=== PATIENT | female | born 1955 | race Caucasian/White ===

== ENCOUNTER → 2016-10-04 | Outpatient (CLI) | payer OTHER ==
--- NOTE | 2016-10-04 17:15 | XR ---
EXAMINATION TYPE: XR finger RT DATE OF EXAM: 10/04/2016 COMPARISON: NONE HISTORY: Pain TECHNIQUE: 3 views FINDINGS: I see no fracture nor dislocation. Joint spaces are fairly normal. IMPRESSION: Negative right ring finger exam.
== END ==
LOC: RAD 16:48
PROVIDERS: ATTEND Family Medicine
DX: M79.644 Pain in right finger(s) (principal)

== ENCOUNTER → 2020-03-27 | Outpatient (CLI) | payer MEDICARE, OTHER | END | disposition home or self-care (01) | LOC: LABWHC1 15:28 | PROVIDERS: ATTEND Family Medicine | DX: Z20.822 Contact with and (suspected) exposure to COVID-19 (principal) | CPT/HCPCS: U0003; C9803 ==

== ENCOUNTER 2020-04-19 18:25 | Observation (INO) | payer OTHER, MEDICARE ==
[2020-04-19] MEDS ORDERED: DIPH,PERTUS(ACELL)TETVAC-LF 0.5 ML VIAL IM ONE (18:47)
--- NOTE | 2020-04-19 19:18 | ED ---
Animal Bite HPI - General Source: patient, RN notes reviewed Mode of arrival: wheelchair Limitations: no limitations <Don Quiros - Last Filed: 04/19/20 20:08> <Ana Cristina Castro P - Last Filed: 04/20/20 16:02> - General Chief Complaint: Animal Bite Stated Complaint: Right foot injury Time Seen by Provider: 04/19/20 18:47 - History of Present Illness Initial Comments: Patient is a 64-year-old female that presents to the emergency department status post accidental right pinky toe amputation from dog bite. She notes that she was in the appendix on a few minutes dog overzealous and bit her foot through her shoe. Patient noted that she didn't even know her toes off until she took her shoe off. She is in no apparent distress or pain while sitting in bed during the exam and interview. Did bring her toe on an icepack was artery several hours old by the time she got the emergency department. She is a smoker but nondiabetic. She does have full sensation in her feet. Patient is very anxious about the potential pain of closing and washing. She denied any loss of consciousness chest pendulous breath headache nausea found diarrhea constipation fever fatigue chills. (Don Quiros) - Related Data Allergies Allergy/AdvReac Type Severity Reaction Status Date / Time No Known Allergies Allergy Verified 04/19/20 20:40 Review of Systems ROS Other: All systems not noted in ROS Statement are negative. <Don Quiros - Last Filed: 04/19/20 20:08> ROS Other: All systems not noted in ROS Statement are negative. <Ana Cristina Castro P - Last Filed: 04/20/20 16:02> ROS Statement: Those systems with pertinent positive or pertinent negative responses have been documented in the HPI. Past Medical History Past Medical History: GERD/Reflux, Hyperlipidemia History of Any Multi-Drug Resistant Organisms: None Reported Past Surgical History: Section, Hysterectomy, Tonsillectomy Past Psychological History: No Psychological Hx Reported Smoking Status: Current every day smoker Past Alcohol Use History: None Reported Past Drug Use History: None Reported <Don Quiros - Last Filed: 04/19/20 20:08> General Exam Limitations: no limitations General appearance: alert, in no apparent distress Head exam: Present: atraumatic, normocephalic, normal inspection Eye exam: Present: normal appearance, PERRL, EOMI. Absent: scleral icterus, conjunctival injection, periorbital swelling ENT exam: Present: normal exam, mucous membranes moist Neck exam: Present: normal inspection. Absent: tenderness, meningismus, lymphadenopathy Respiratory exam: Present: normal lung sounds bilaterally. Absent: respiratory distress, wheezes, rales, rhonchi, stridor Cardiovascular Exam: Present: regular rate, normal rhythm, normal heart sounds. Absent: systolic murmur, diastolic murmur, rubs, gallop, clicks GI/Abdominal exam: Present: soft, normal bowel sounds. Absent: distended, tenderness, guarding, rebound, rigid Extremities exam: Present: full ROM, normal capillary refill, other (Foot was wrapped in napkins and pain or state to stop the bleeding and control the mass prior to coming into the emergency department). Absent: normal inspection (Patient has open wound where right pinky toe used to be, right pinky toe was is about a whiplash back.), tenderness, pedal edema, joint swelling, calf tenderness Neurological exam: Present: alert, oriented X3, CN II-XII intact Psychiatric exam: Present: normal affect, normal mood Skin exam: Present: warm, dry, intact, normal color. Absent: rash <Don Quiros - Last Filed: 04/19/20 20:08> Course Vital Signs 04/19/20 04/19/20 18:27 20:47 Temperature 98.0 F 97.5 F L Pulse Rate 117 H Pulse Rate [ 99 Pulse Oximetery ] Respiratory 18 18 Rate Blood Pressure 152/84 Blood Pressure 129/78 [Left Arm] O2 Sat by Pulse 99 94 L Oximetry Medical Decision Making - Radiology Data Radiology results: report reviewed, image reviewed <Don Quiros - Last Filed: 04/19/20 20:08> <Ana Cristina Castro - Last Filed: 04/20/20 16:02> - Medical Decision Making 64-year-old female status post right pinky toe amputation via dog bite. 2 g of Ancef, tetanus vaccine ordered. Case discussed with Dr. Castro, consult good Dr. Navas it was decided just to wash out the freshly amputated toe with a clean bandage on it and admitted observation for debridement in the morning. Toes washed out extensively with normal saline and then covered in a clean dry dressing with 4 x 4 gauze and Kerlix wrap. (Don Quiros) I personally saw and evaluated the patient upon arrival to the emergency department. Patient does have a traumatic amputation of the right P Henry however does not meet criteria for activation of trauma. I agree with workup and management including antibiotics tetanus vaccine update, x-rays and admission to orthopedics for washout. (Ana Cristina Castro) - Radiology Data Toe x-ray: Amputation deformity. Possible foreign body (Don Quiros) Disposition Is patient prescribed a controlled substance at d/c from ED?: No Time of Disposition: 20:09 <Don Quiros - Last Filed: 04/19/20 20:08> <Ana Cristina Castro - Last Filed: 04/20/20 16:02> Clinical Impression: Amputation, toe, traumatic, Dog bite Disposition: ADMITTED IP TO THIS HOSP Condition: Stable
[2020-04-19] MEDS ORDERED: LIDOCAINE 1% INJ 10MG/ML (20 ML MDV) SQ ONE (19:30)
--- NOTE | 2020-04-19 19:38 | XR ---
EXAMINATION TYPE: XR toes RT DATE OF EXAM: 04/19/2020 COMPARISON: NONE HISTORY: Dogbite TECHNIQUE: 3 views FINDINGS: There is amputation deformity of the little toe at the level of the mid shaft of the proxim al phalanx. There are small densities projected over the soft tissues that could be soft tissue forei gn bodies. IMPRESSION: Amputation deformity. Possible foreign bodies.
[2020-04-19] MEDS ORDERED: traMADol 50 MG TAB PO PRN (20:05)
[2020-04-19] MEDS ORDERED: NALOXONE 0.4 MG/ML 1 ML VIAL IV PRN (20:05)
[2020-04-19] MEDS ORDERED: HYDROmorphone 0.5 MG/0.5 ML SYRINGE IVP PRN (20:05)
[2020-04-19] MEDS: SODIUM CHLORIDE 0.9% 1,000 ML IV SCH (21:12)
--- NOTE | 2020-04-19 21:24 | P.HPOR ---
History of Present Illness H&P Date: 04/19/20 Chief Complaint: Right small toe traumatic amputation Patient is a pleasant 64-year-old female who was bitten by a dog today on her right foot. She was at home and going to feed the dogs. She has an Stateless bulldog and she has had the dog for over 4 years but for some reason today when she was going to feed him he became very aggressive with the biter and bit her on the foot. She was wearing tennis shoes and when she went to take her tennis shoe off she found that her toe was missing. She tried to save the toe and place it on ice and presented to the emergency room. She denies any other injury she denies any other trauma. She denies any other problems with her foot or toes in the past. She is a heavy smoker. She denies any diabetes. She denies any other injury or any other bites. She says that the dog has never been anybody before. Review of Systems As stated in HPI. He denies any other injury. Denies any prior problems his right foot. She is normally a community ambulate without any assistance. She is a heavy smoker. Denies diabetes. She says she has eczema and dryness at her bilateral feet and ankles. 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 Past Medical History Past Medical History: GERD/Reflux, Hyperlipidemia Additional Past Medical History / Comment(s): History of chronic low back pain History of Any Multi-Drug Resistant Organisms: None Reported Past Surgical History: Section, Hysterectomy, Tonsillectomy Past Psychological History: No Psychological Hx Reported Smoking Status: Current every day smoker Past Alcohol Use History: None Reported Past Drug Use History: None Reported Medications and Allergies Home Medications Medication Instructions Recorded Confirmed Type Atorvastatin Calcium [Lipitor] 10 mg PO HS 04/19/20 04/19/20 History Loratadine [Claritin] 10 mg PO DAILY 04/19/20 04/19/20 History Naproxen Sodium [Aleve] 220 mg PO Q12HR 04/19/20 04/19/20 History Omeprazole [PriLOSEC] 20 mg PO DAILY 04/19/20 04/19/20 History Allergies Allergy/AdvReac Type Severity Reaction Status Date / Time No Known Allergies Allergy Verified 04/19/20 20:40 Physical Examination Osteopathic Statement: *. No significant issues noted on an osteopathic structural exam other than those noted in the History and Physical/Consult. - Ankle & Foot right Ankle appearance: laceration (There is some chronic skin changes where she does some scratching at her ankles. Her compartments are soft. She has tenderness at the small toe but no severe pain. Rest her foot is nontender. Her other toes are warm. Her other extremity is in full active and passive range of motion.), other (At the right foot her small toe has traumatic amputation. There is some exposed bone at the base of the proximal phalanx of the small toe. There is laceration around the area and torn tissue. There is no significant bleeding. There is some skin changes with chronic scratching around her anterior) Results - Diagnostic results Ankle/Foot x-ray: report reviewed, image reviewed (X-rays of her right foot show a traumatic and dictation in the base of the proximal phalanx of the small toe on the right. There is obvious soft tissue loss.) Assessment and Plan Assessment: Traumatic amputation the right small toe due to a dog bite Chronic smoker with poor vascular status Exposed bone at the amputation site Plan: Traumatic amputation the right small toe due to a dog bite Chronic smoker with poor vascular status Exposed bone at the amputation site The patient had a acute traumatic amputation of right small toe due to her dog bite. She had copious irrigation of the area in the emergency room with dressing appropriately. She has had her tetanus and antibiotics in the emergency room. I think the patient requires revision of the traumatic amputation surgically in the operating room for formal excisional irrigation and debridement. She will likely need some further resection of the bone at least of the proximal phalanx and possibly of the distal aspect of the metatarsal in order to achieve some soft tissue closure. There is significant soft tissue loss circumferentially and it will be difficult for obtaining appropriate wound closure. Her smoking status also adds to the degree of difficulty for healing. I explained this to her at length. She understands that if it does not heal appropriately she may need further resection and further amputation of the area. She has the toe with her but given the appearance of the area and the very poor vascular bed I think that it would not be of any benefit to try to save the toe or to do any re- anastomosis or reattachment of the toe. I explained this at length to her and she understands. We will keep her for observation and have her nothing by mouth after midnight and plan for surgical intervention tomorrow. Answered her questions best her ability G understand I discussed the risk of occasions alternatives and benefits of the surgery with her I discussed the risk of bleeding risk and infection risk and need for further surgery risk of decreased loss of motion loss of function in her foot was all explained to her answered her questions and she elects to proceed with surgical intervention.
[2020-04-20] MEDS: PANTOPRAZOLE 40 MG TABLET PO SCH (10:04)
[2020-04-20] MEDS: LORATADINE 10 MG TAB PO SCH (10:04)
[2020-04-20] MEDS: SODIUM CHLORIDE 0.9% 1,000 ML IV SCH ×2 (10:07→21:01)
[2020-04-20] MEDS ORDERED: LACTATED RINGERS 1,000 ML IV ONE (16:00)
[2020-04-20] MEDS ORDERED: MIDAZOLAM 2 MG/2 ML VIAL ONE (16:00)
[2020-04-20] MEDS ORDERED: LIDOCAINE 1% INJ 10MG/ML (20 ML MDV) ONE (16:00)
[2020-04-20] MEDS ORDERED: PROPOFOL 10 MG/ML 20 ML VIAL IV ONE (16:00)
[2020-04-20] MEDS ORDERED: fentaNYL (PF) 50 MCG/ML 2 ML AMP ONE (16:00)
[2020-04-20] MEDS ORDERED: ceFAZolin 1,000 MG VIAL IVPB ONE (16:12)
[2020-04-20] MEDS ORDERED: HYDROcodone/APAP 5-325MG 1 EACH TAB PO PRN (16:40)
[2020-04-20] MEDS ORDERED: PROCHLORPERAZINE SUPPOSITORY 25 MG SUPP RECTAL PRN (16:40)
[2020-04-20] MEDS ORDERED: HYDROmorphone 0.5 MG/0.5 ML SYRINGE IVP ONE (16:40)
[2020-04-20] MEDS ORDERED: KETOROLAC 15 MG/ML 1 ML VIAL IVP ONE (16:41)
[2020-04-20] MEDS ORDERED: ONDANSETRON 4 MG/2 ML VIAL IVP ONE (16:41)
--- NOTE | 2020-04-20 17:00 | P.CONS ---
History of Present Illness - Reason for Consult Consult date: 04/20/20 Medical management - Chief Complaint Dog bite - History of Present Illness Patient is a 64-year-old female with a known history of hyperlipidemia, GERD and currently everyday smoker presents to ER status post accidental right fifth toe amputation due to dog bite. Patient states that dog bit her foot through her shoe. She didn't know her toe off until she took her shoe off. Denied any complaints of severe pain currently. Patient brought her to on an ice pack to the emergency department. Denied any other trauma. She was seen by orthopedic surgery and is planning for formal excisional ir rigation and debridement and wound closure. Patient denied any complains of chest pain or shortness of breath. No nausea vomiting or abdominal pain or diarrhea. No dysuria M.. No recent illnesses. No prior history of heart disease or chronic kidney disease. Denied any history of peripheral vascular disease. Review of Systems Constitutional: Patient denies any fever or chills . No generalized weakness or weight loss. Abdomen: Patient denied nausea vomiting and diarrhea and abdominal pain. Cardiovascular: Patient denies any chest pain or short of breath no palpitations. Respiratory: patient denied any cough is from production. No shortness of breath Neurologic: Patient denied any numbness or tingling headache. Musculoskeletal: Patient denies any complaints of joint swelling or deformity. Right fifth toe dog bite. Skin: Negative Psychiatric: Negative Endocrine: No heat or cold intolerance. No recent weight gain. Genitourinary: No dysuria or hematuria. All other 14 point ROS negative except the above Past Medical History Past Medical History: GERD/Reflux, Hyperlipidemia Additional Past Medical History / Comment(s): History of chronic low back pain History of Any Multi-Drug Resistant Organisms: None Reported Past Surgical History: Section, Hysterectomy, Tonsillectomy Past Anesthesia/Blood Transfusion Reactions: No Reported Reaction Past Psychological History: No Psychological Hx Reported Smoking Status: Current every day smoker Past Alcohol Use History: None Reported Past Drug Use History: None Reported - Past Family History Father Family Medical History: Myocardial Infarction ([place]) Mother Family Medical History: Hyperlipidemia Medications and Allergies Home Medications Medication Instructions Recorded Confirmed Type Atorvastatin Calcium [Lipitor] 10 mg PO HS 04/19/20 04/19/20 History Loratadine [Claritin] 10 mg PO DAILY 04/19/20 04/19/20 History Naproxen Sodium [Aleve] 220 mg PO Q12HR 04/19/20 04/19/20 History Omeprazole [PriLOSEC] 20 mg PO DAILY 04/19/20 04/19/20 History Amoxicillin/Potassium Clav 1 tab PO Q12HR 1 Days #14 tab 04/20/20 Rx [Augmentin 875-125 Tablet] HYDROcodone/APAP 5-325MG [[place] 5] 1 each PO Q6HR PRN #28 tab 04/20/20 Rx Allergies Allergy/AdvReac Type Severity Reaction Status Date / Time No Known Allergies Allergy Verified 04/19/20 20:40 Physical Exam Vitals: Vital Signs Temp Pulse Pulse Resp BP BP BP 04/20/20 08:00 16 04/20/20 07:00 98.1 F 92 16 159/88 04/20/20 03:10 95 18 04/20/20 03:00 97.4 F L 95 18 128/81 04/19/20 21:37 98.1 F 97 20 151/89 04/19/20 20:47 97.5 F L 99 18 129/78 04/19/20 18:27 98.0 F 117 H 18 152/84 Pulse Ox 04/20/20 08:00 04/20/20 07:00 97 04/20/20 03:10 04/20/20 03:00 99 04/19/20 21:37 99 04/19/20 20:47 94 L 04/19/20 18:27 99 Intake and Output 04/19/20 04/20/20 04/20/20 21:59 06:59 14:59 Intake Total 600 Balance 600 Intake: IV 600 Sodium Chloride 0.9% 1, 600 000 ml @ 75 mls/hr IV . [id number] [facility] Rx#:[id number] Other: Voiding Method Toilet # Voids 1 Weight PHYSICAL EXAMINATION: Patient is lying in the bed comfortably, no acute distress, awake alert and oriented.. HEENT: Normocephalic. Neck is supple. Pupils reactive. Nostrils clear. Oral cavity is moist. Ears reveal no drainage. Neck reveals no JVD, carotid bruits, or thyromegaly. CHEST EXAMINATION: Trachea is central. Symmetrical expansion. Lung potts clear to auscultation and percussion. CARDIAC: Normal S1, S2 with no gallops. No murmurs ABDOMEN: Soft. Bowel sounds normal. No organomegaly. No abdominal bruits. Extremities: reveal no edema. No clubbing or cyanosis Neurologically awake, alert, oriented x3 with well-coordinated movements. No focal deficits noted Skin: No rash or skin lesions. Dryness and bilateral feet and ankles. Chronic skin changes. Psychiatric: Coperative. Nonsuicidal Musculoskeletal: No joint swelling or deformity. Normal range of motion. Assessment and Plan Assessment: Status post dog bite to her shoe with traumatic amputation of the right small toe. Exposed bone at the traumatic site Hyperlipidemia Ongoing nicotine addiction GERD DVT prophylaxis Plan: Patient will be continued on pain management with Dilaudid. Gentle IV hydration. Patient was given tetanus shot in the ER. We will obtain CBC and BMP. Patient is at low risk for low risk orthopedic surgery. continue to follow and further recommendations based on the clinical course. GI and DVT prophylaxis.
--- NOTE | 2020-04-20 17:01 | P.OP ---
Date of Procedure: 04/20/20 Preoperative Diagnosis: Traumatic amputation of right small toe due to a dog bite Exposed bone at the proximal phalanx the right small toe Complex laceration right small toe approximate 5 cm Postoperative Diagnosis: Traumatic amputation of right small toe due to a dog bite Exposed bone at the proximal phalanx the right small toe Complex laceration right small toe approximate 5 cm Anesthesia: MAC Pathology: other (Excised bone from the proximal phalanx of right small toe sent to pathology) Condition: stable Disposition: PACU Description of Procedure: Preoperative diagnosis: Traumatic amputation of right small toe due to a dog bite Exposed bone at the proximal phalanx the right small toe Complex laceration right small toe approximate 5 cm Postoperative diagnosis same Procedure: Revision of traumatic amputation of right small toe with disarticulation at the MCP joint and closure of complex laceration approximately 5 cm Excisional irrigation and debridement of right small toe traumatic amputation Surgeon: Dr. Yosef Loco.: Ishmael Mayen who is present that the entire the case persistence during positioning dissection exposure placement of hardware and closure Anesthesia: Gen. with back per Dr. Bray Estimated blood loss: Approximately 25 mL No tourniquet was used Components implanted: None Disposition: To recovery room in good stable condition Operative indications The patient sustained a injury yesterday when her dog bit her on her foot. She was wearing a tennis shoe at the time the dog bit her on her foot and she was unsure what happened when she went to take off her shoe she's found that her toe was missing. She was brought to the emergency room with the toe on ice but given the complex laceration and the vascular bed and her chronic smoking status we felt that her best option would be to go through revision of the traumatic amputation rather than replantation. I discussed the issues of both these with her. I discussed this with her and her daughter. I discussed the nature of the possibility of replantation given the vascular bed and the fact that it is a small toe in a somewhat poor vascularized area in a chronic smoker. I did not feel that it would have a good chance of replantation and survival and felt that she would be a cervical with revision of the traumatic amputation and closure of the wound. Even with revision of the amputation it would be somewhat at risk at the wound site given her chronic smoking status and the area of the wound and the traumatic injury. We discussed the range of treatment options from conservative to surgical. They elected proceed with surgical intervention. We answered their questions to the best of our ability healing which they can understand. They signed an informed consent. Operative summary After obtaining informed consent evaluation by anesthesia, preoperative evaluation and clearance for medical service, the patient was identified and prepped Abdul area and the surgical site was marked. There brought to the operating room where the given appropriate anesthesia by the anesthesia department in standard fashion without any complications. Once the anesthesia was established we were able to position the patient. The patient was able to remain on her stretcher in the supine position well-padded well molded. Her right lower extremity had a nonsterile tourniquet placed over the right proximal thigh but we did not use it through the case. Right lower extremity is prepped and draped in normal standard fashion. Appropriate keystone protocol appropriate timeout was completed and we'll proceed with surgery at the right small toe. I was able to explore the wound bed appropriately. There was obvious exposed bone beyond the soft tissue envelope. The base of the proximal phalanx was still present at the small toe. There is some denuded tissue and some laceration around the wound site. Wound was copiously irrigated and suctioned dry. Good hemostasis was maintained. I felt we had to resect some of the bone at the site. I started resect some of the basal possible phalanx and felt that we had to remove the entire proximal phalanx and disarticulate the MTP joint. This was able to be completed with good hemostasis maintained. There is no evidence of fracture at the metatarsal. Once I removed the base of the possible phalanx I tried to reapproximate the wound margins. I was able to get good approximation of the wound margins as this freed up some of the space. There was no significant tension at the wound margins. Her some denuded tissue which was excised and removed. The wound was copiously irrigated and suctioned dry. The wound was complex and somewhat stellate type pattern and I was able to then reapproximate some the wound margins with 4-0 nylon. I reapproximated the main laceration with 4-0 nylon for good reapproximation. There is no significant tension. It appeared to have good vascularity. I did not feel we had to remove any further bone at this point. The wound bed appeared to be stable without any purulence. The wound was copiously irrigated suctioned dry. We will proceed with closure, and dressed the wound appropriately. The wound was able to be closed with combination of adverse and simple 4-0 nylon stitches. Triple antibiotic ointment was placed over the sutures and a Adaptic with bulky Kerlix dressing was placed loosely and an Vamsi wrap was placed over the top. Her other toes had good capillary refill. We did not have to use a tourniquet. The drapes are opened down. The patient was woken up by anesthesia and brought to recovery room in good stable condition. She'll be able to be discharged home today when she is stable from postanesthesia care unit. She has been given IV antibiotic here in the hospital and will continue oral antibiotics at home with Augmentin. We will follow her up closely in the office the next couple of days. She'll be given appropriate discharge instructions and a Christopher shoe for protecting her foot.
[2020-04-20 18:03] LABS: Basophils % (A) 0 %; Eosinophils # (A) 0.1 k/uL (0-0.7); Eosinophils % (A) 1 %; HCT 40.8 % (34.0-46.0); HGB 13.5 gm/dL (11.4-16.0); Lymphocytes # (A) 0.9 k/uL (1.0-4.8); Lymphocytes % (A) 18 %; MCH 32.5 pg (25.0-35.0); MCHC 33.1 g/dL (31.0-37.0); MCV 98.4 fL (80.0-100.0); Mean Platelet Volume 7.4; Monocytes # (A) 0.3 k/uL (0-1.0); Monocytes % (A) 5 %; Neutrophils # (A) 3.8 k/uL (1.3-7.7); Neutrophils % (A) 74 %; Platelet Count 216 k/uL (150-450); RBC 4.14 m/uL (3.80-5.40); RDW 13.1 % (11.5-15.5); WBC 5.2 k/uL (3.8-10.6)
[2020-04-20 18:20] LABS: African American GFR (CKD) >90 (>60 ml/min/1.73 sqM); Anion Gap 6 mmol/L; Blood Urea Nitrogen 6 mg/dL (7-17); Carbon Dioxide 26 mmol/L (22-30); Chloride 104 mmol/L (98-107); Glucose 101 mg/dL (74-99); Non-African American GFR(CKD) >90 (>60 ml/min/1.73 sqM); Potassium 4.1 mmol/L (3.5-5.1); Sodium 136 mmol/L (137-145)
[2020-04-21 07:21] VITALS: BP 116/68; PULSE 100; RESP 16; TEMP 98.2
[2020-04-21] MEDS: LORATADINE 10 MG TAB PO SCH (08:08)
[2020-04-21] MEDS: PANTOPRAZOLE 40 MG TABLET PO SCH (08:08)
== END 2020-04-21 11:45 | disposition home or self-care (01) ==
LOC: EC 18:25 → 6NMEDSUR 20:14
PROVIDERS: ADMIT Orthopaedic Surgery Orthopaedic Surgery of the Spine; ATTEND Orthopaedic Surgery Orthopaedic Surgery of the Spine
DX: S98.131A Complete traumatic amputation of one right lesser toe, initial encounter (principal); W54.0XXA Bitten by dog, initial encounter; F17.200 Nicotine dependence, unspecified, uncomplicated; E78.5 Hyperlipidemia, unspecified; K21.9 Gastro-esophageal reflux disease without esophagitis; G89.29 Other chronic pain; M54.5 Low back pain; Z90.710 Acquired absence of both cervix and uterus; Z79.899 Other long term (current) drug therapy; Z79.1 Long term (current) use of non-steroidal anti-inflammatories (NSAID); Z82.49 Family history of ischemic heart disease and other diseases of the circulatory system; Z20.822 Contact with and (suspected) exposure to COVID-19
CPT/HCPCS: 28820; 90471; 99284; 80048; 85025; 87635; 73660; 90715; G0378 ×3; J2250; J0690 ×2; J2405; J2001 ×2; J3010; J1885; J2704; J1170 ×2; 88302; 88311